=== PATIENT | female | born 1950 | race African-American/Black ===

== ENCOUNTER 2017-04-09 06:48 | Day surgery (SDC) | payer MEDICARE, MEDICAID ==
[~2017-04-09 06:48] MED LIST: KETOROLAC TROMETHAMINE 0.45% 4 DROP/0.4 ML DROPERETTE OD PRN
[2017-04-09] MEDS: CYCLOPENTOLATE 0.2%/PHENYLEPHRINE 1% OPH SOLN 2 ML OD PRN ×3 (07:05→07:39)
[2017-04-09] MEDS: TROPICAMIDE 1% OPH SOLN 3 ML OD PRN ×3 (07:05→07:39)
[2017-04-09] MEDS: BESIFLOXACIN HCL 0.6% OPH SUSP 5 ML BOTTLE OD PRN ×4 (07:06→08:28)
[2017-04-09] MEDS: LIDOCAINE 3.5% OPH GEL/PF 1 ML/TUBE OD PRN ×3 (07:07→07:57)
[2017-04-09] MEDS ORDERED: CHONDR SU A NA/HYALUR INTRAOC KIT (SURGICARE) ONE (07:08)
[2017-04-09] MEDS ORDERED: LIDOCAINE 1% INJ-PF (10 MG/ML) 30 ML SDV ONE (07:08)
[2017-04-09] MEDS ORDERED: EPINEPHRINE INJ/PF 1 MG/1 ML AMPULE ONE (07:08)
[2017-04-09] MEDS ORDERED: MIDAZOLAM 2 MG/2 ML INJ ONE (07:40)
[2017-04-09] MEDS: TOBRAMYCIN SULFATE/DEXAMETH OPH OINTMENT 3.5 GM ONE ×2 (08:28)
[2017-04-09] MEDS ORDERED: TRYPAN BLUE 0.06 % OPH SOLN 0.5 ML DISP.SYRIN ONE (08:28)
== END 2017-04-09 09:51 | disposition home or self-care (01) ==
LOC: SC 06:48
PROVIDERS: ATTEND Ophthalmology
PROC: 08RJ3JZ Replacement of Right Lens with Synthetic Substitute, Percutaneous Approach (ICD-10-PCS; principal; 2017-04-09 07:45)
DX: H25.11 Age-related nuclear cataract, right eye (principal); M19.90 Unspecified osteoarthritis, unspecified site; E11.9 Type 2 diabetes mellitus without complications; I10 Essential (primary) hypertension; J45.909 Unspecified asthma, uncomplicated; Z79.899 Other long term (current) drug therapy; Z79.84 Long term (current) use of oral hypoglycemic drugs
CPT/HCPCS: 66984; 82962; V2630; J2250; J3490 ×4; A9270 ×2; J0171; 142

== ENCOUNTER 2017-04-23 06:46 | Day surgery (SDC) | payer MEDICARE, MEDICAID ==
[~2017-04-23 06:46] MED LIST changes: -KETOROLAC TROMETHAMINE 0.45% 4 DROP/0.4 ML DROPERETTE OD PRN; +KETOROLAC TROMETHAMINE 0.45% 4 DROP/0.4 ML DROPERETTE OS PRN
[2017-04-23] MEDS: TROPICAMIDE 1% OPH SOLN 3 ML OS PRN ×3 (06:50→07:10)
[2017-04-23] MEDS: CYCLOPENTOLATE 0.2%/PHENYLEPHRINE 1% OPH SOLN 2 ML OS PRN ×3 (06:50→07:10)
[2017-04-23] MEDS: BESIFLOXACIN HCL 0.6% OPH SUSP 5 ML BOTTLE OS PRN ×4 (06:50→08:03)
[2017-04-23] MEDS: LIDOCAINE 3.5% OPH GEL/PF 1 ML/TUBE OS PRN ×3 (06:51→07:40)
[2017-04-23] MEDS ORDERED: MIDAZOLAM 2 MG/2 ML INJ ONE (06:56)
[2017-04-23] MEDS ORDERED: LIDOCAINE 1% INJ-PF (10 MG/ML) 30 ML SDV ONE (07:10)
[2017-04-23] MEDS ORDERED: EPINEPHRINE INJ/PF 1 MG/1 ML AMPULE ONE (07:10)
[2017-04-23] MEDS ORDERED: TRYPAN BLUE 0.06 % OPH SOLN 0.5 ML DISP.SYRIN ONE (07:43)
[2017-04-23] MEDS: CHONDR SU A NA/HYALUR INTRAOC KIT (SURGICARE) ONE ×2 (07:52→07:53)
[2017-04-23] MEDS: TOBRAMYCIN SULFATE/DEXAMETH OPH OINTMENT 3.5 GM ONE ×2 (08:03)
== END 2017-04-23 09:43 | disposition home or self-care (01) ==
LOC: SC 06:46
PROVIDERS: ATTEND Ophthalmology
PROC: 08RK3JZ Replacement of Left Lens with Synthetic Substitute, Percutaneous Approach (ICD-10-PCS; principal; 2017-04-23 07:30)
DX: H25.12 Age-related nuclear cataract, left eye (principal); Z96.1 Presence of intraocular lens; M19.90 Unspecified osteoarthritis, unspecified site; E11.9 Type 2 diabetes mellitus without complications; I10 Essential (primary) hypertension; J44.9 Chronic obstructive pulmonary disease, unspecified; E66.9 Obesity, unspecified; Z79.84 Long term (current) use of oral hypoglycemic drugs; Z79.899 Other long term (current) drug therapy; Z98.41 Cataract extraction status, right eye; Z79.51 Long term (current) use of inhaled steroids; Z68.41 Body mass index [BMI] 40.0-44.9, adult
CPT/HCPCS: 82962; 72100; 66984; V2630; J2250; J3490 ×4; A9270 ×2; J0171; 142

== ENCOUNTER → 2017-04-23 | Outpatient (CLI) | payer MEDICARE, MEDICAID ==
--- NOTE | 2017-04-23 13:40 | RADIOLOGY REPORT (SQ) ---
EXAM DESCRIPTION: LUMBAR SPINE 2 VIEWS COMPLETED DATE/TIME: 04/23/2017 10:52 am REASON FOR STUDY: LUMBAGO WITH SCIATICA, UNSPECIFIED SIDE M54.40 LUMBAGO WITH SCIATICA, UNSPECIFIED SIDE COMPARISON: None. NUMBER OF VIEWS: Two views. TECHNIQUE: AP and lateral radiographic images acquired of the lumbar spine. LIMITATIONS: None. FINDINGS: MINERALIZATION: Normal. SEGMENTATION: Normal. No transitional anatomy. ALIGNMENT: Normal. VERTEBRAE: Maintained height. No fracture or worrisome bone lesion. DISCS: Mild disc degeneration L5-S1. Scattered osteophytes. POSTERIOR ELEMENTS: Facet arthropathy L5-S1 on the right. HARDWARE: None in the spine. PARASPINAL SOFT TISSUES: Normal. PELVIS: Intact as visualized. No fractures or worrisome bone lesions. SI joints intact. OTHER: No other significant finding. IMPRESSION: Mild disc degeneration L5-S1. Scattered osteophytes. Facet arthropathy L5-S1 on the ri ght. TECHNICAL DOCUMENTATION: JOB ID: [id number] [employer]- All Rights Reserved
== END ==
LOC: OD 10:33
PROVIDERS: ATTEND Physician Assistant
DX: M54.40 Lumbago with sciatica, unspecified side (principal)
CPT/HCPCS: 72100

== ENCOUNTER 2017-11-19 01:04 | Emergency (ER) | payer MEDICARE, MEDICAID ==
[2017-11-19 02:31] LABS: ABSOLUTE BASOPHILS # (AUTO) 0.1 10^3/uL (0.0-0.2); ABSOLUTE EOSINOPHILS # (AUTO) 0.4 10^3/uL (0.0-0.6); ABSOLUTE LYMPHOCYTES (AUTO) 2.3 10^3/uL (0.5-4.7); ABSOLUTE MONOCYTES (AUTO) 0.7 10^3/uL (0.1-1.4); ABSOLUTE NEUT (AUTO) 2.9 10^3/uL (1.7-8.2); EOSINOPHILS % (AUTO) 6.8 % (0-6); HEMATOCRIT 30.3 % (36.0-47.0); HEMOGLOBIN 10.2 g/dL (12.0-15.5); MEAN CORPUSCULAR HEMOGLOBIN 26.9 pg (27.0-33.4); MEAN CORPUSCULAR HGB CONC 33.5 g/dL (32.0-36.0); MEAN CORPUSCULAR VOLUME 80 fl (80-97); MONOCYTES % (AUTO) 10.2 % (3-13); PLATELET COUNT 126 10^3/uL (150-450); RED BLOOD COUNT 3.78 10^6/uL (3.72-5.28); RED CELL DISTRIBUTION WIDTH 16.3 % (11.5-14.0); TOTAL CELLS COUNTED % (AUTO) 100 %; WHITE BLOOD COUNT 6.4 10^3/uL (4.0-10.5)
[2017-11-19 02:43] LABS: ALANINE AMINOTRANSFERASE 35 U/L (9-52); ALBUMIN 2.3 g/dL (3.5-5.0); ALKALINE PHOSPHATASE 135 U/L (38-126); ANION GAP 7 (5-19); ASPARTATE AMINO TRANSFERASE 84 U/L (14-36); BILIRUBIN,DIRECT 0.2 mg/dL (0.0-0.4); BILIRUBIN,TOTAL 0.2 mg/dL (0.2-1.3); BLOOD UREA NITROGEN 9 mg/dL (7-20); CALCIUM 9.6 mg/dL (8.4-10.2); CARBON DIOXIDE 23 mmol/L (22-30); CHLORIDE 112 mmol/L (98-107); CREATINE KINASE 640 U/L (30-135); GLUCOSE 142 mg/dL (75-110); SODIUM 142.3 mmol/L (137-145); TOTAL PROTEIN 5.8 g/dL (6.3-8.2)
[2017-11-19 02:55] LABS: CREATINE KINASE MB 1.79 ng/mL (<4.55); NT PRO BNP 173 pg/mL (5-900); TROPONIN I < 0.012 ng/mL
--- NOTE | 2017-11-19 02:56 | RADIOLOGY REPORT (SQ) ---
EXAM DESCRIPTION: CHEST SINGLE VIEW CLINICAL HISTORY: shortness of breath, cough COMPARISON: None. FINDINGS: Single frontal view of the chest. The cardiomediastinal silhouette has normal size and contour. No consolidation, pneumothorax, or pleural effusion. No displaced rib fractures identified. Leads overlie the chest. Upper abdominal soft tissues are unremarkable. IMPRESSION: 1. No acute pulmonary process identified.
--- NOTE | 2017-11-19 03:11 | ER Document Report ---
ED General - General Chief Complaint: Chest Pain Stated Complaint: COUGH Time Seen by Provider: 11/19/17 01:46 Notes: Patient is a 67-year-old female who presents with a chief complaint of nonproductive cough 1 week patient denies any fever or chills, nausea, vomiting. Patient reports that she also has generalized abdominal tenderness with swelling 1 week. Patient reports normal bowel movements last 2 days does report 2 episodes of diarrhea last week which has resolved. Patient does report chest pain but only with cough. Patient states lately she has had increasing dyspnea on exertion. Patient reports a history of asthma non-insulin -dependent diabetes and hypertension. TRAVEL OUTSIDE OF THE [place] IN LAST 30 DAYS: No - Related Data Allergies/Adverse Reactions: No Known Allergies Allergy (Verified 04/23/17 06:55) Past Medical History - General Information source: Patient - Social History Smoking Status: Never Smoker Cigarette use (# per day): No Chew tobacco use (# tins/day): Yes Frequency of alcohol use: None Drug Abuse: None Lives with: Family Family History: Reviewed & Not Pertinent Patient has suicidal ideation: No Patient has homicidal ideation: No - Past Medical History Cardiac Medical History: Reports: Hx Hypertension - MEDICATED Denies: Hx Heart Attack Pulmonary Medical History: Reports: Hx Asthma - medication/prn for shortness of breath-NONE IN APPROX A MONTH Neurological Medical History: Denies: Hx Cerebrovascular Accident, Hx Seizures Endocrine Medical History: Reports: Hx Diabetes Mellitus Type 2 Renal/ Medical History: Reports: None. Denies: Hx Peritoneal Dialysis Malignancy Medical History: Reports: None GI Medical History: Reports: None. Denies: Hx Hepatitis, Hx Hiatal Hernia, Hx Ulcer Skin Medical History: Reports None Infectious Medical History: Reports: None. Denies: Hx Hepatitis Past Surgical History: Reports: Hx Gynecologic Surgery - D&C, Hx Tonsillectomy. Denies: Hx Hysterectomy, Hx Mastectomy, Hx Open Heart Surgery, Hx Pacemaker - Immunizations Hx Diphtheria, Pertussis, Tetanus Vaccination: No Hx Pneumococcal Vaccination: 05/18/11 Review of Systems - Review of Systems -: No ROS unobtainable due to patient's medical condition Constitutional: No symptoms reported EENT: No symptoms reported Cardiovascular: See HPI, Edema - Bilateral lower extremity 3+ pitting edema Respiratory: See HPI, Cough - Non-productive cough x 1 week Gastrointestinal: See HPI, Abdomen distended Genitourinary: No symptoms reported Female Genitourinary: No symptoms reported Musculoskeletal: No symptoms reported Skin: See HPI Hematologic/Lymphatic: No symptoms reported Neurological/Psychological: No symptoms reported Physical Exam - Vital signs Vitals: Temp Pulse Resp BP Pulse Ox 98.2 F 82 18 149/65 H 97 11/19/17 01:24 11/19/17 01:24 11/19/17 01:24 11/19/17 01:24 11/19/17 01:24 Interpretation: Normal - General General appearance: Appears well, Alert - HEENT Head: Normocephalic, Atraumatic Eyes: Normal Pupils: PERRL - Respiratory Respiratory status: No respiratory distress Chest status: Pain with cough Breath sounds: Normal Chest palpation: Normal - Cardiovascular Rhythm: Regular Heart sounds: Normal auscultation Murmur: No Pulses: Bounding: Radial, Posterior tibial - Abdominal Inspection: Normal Distension: Distended Bowel sounds: Normal Tenderness: Nontender Organomegaly: No organomegaly - Back Back: Normal, Nontender - Extremities General upper extremity: Nontender, Normal color, Normal ROM, Normal temperature General lower extremity: Nontender, Edema, Normal color, Normal ROM, Normal temperature, Normal weight bearing. No: Stef's sign - Neurological Neuro grossly intact: Yes Cognition: Normal Orientation: AAOx4 Kindra Coma Scale Eye Opening: Spontaneous Kindra Coma Scale Verbal: Oriented [place] Coma Scale Motor: Obeys Commands Kindra Coma Scale Total: 15 Speech: Normal Motor strength normal: LUE, RUE, LLE, RLE Sensory: Normal - Psychological Associated symptoms: Normal affect, Normal mood - Skin Skin Temperature: Warm Skin Moisture: Dry Skin Color: Normal Course - Re-evaluation Re-evalutation: Chest xray unremarkable, labs unremarkable other than elevated CK of 640 and decreased albumin. EKG shows a sinus rhythm with no ST depressions or elevations. Discussed patient with Dr. Zaragoza. Recommendation made to performs bedside ultrasound to [facility] to evaluate for ascites. Ultrasound was negative. Upon reviewing patients previous labs, patient has had elevated CK in the past. Patient states that she feels well and that she thinks her cough may be related to her lisinopril. Patient ambulated around the department and maintained an O2 saturation of 100% with a heart rate of 98. Patient will be discharged with prescription for Lasix 20 mg daily and agrees to follow-up with her primary care physician within the next 3-5 days. Patient verbalizes understanding and agrees with plan of care. - Vital Signs Vital signs: Temp Pulse Resp BP Pulse Ox 98.4 F 87 17 148/84 H 97 11/19/17 04:31 11/19/17 04:31 11/19/17 04:31 11/19/17 04:31 11/19/17 04:31 - Laboratory Result Diagrams: 11/19/17 02:22 11/19/17 02:22 Laboratory results interpreted by me: 11/19/17 11/19/17 02:22 02:22 Hgb 10.2 L Hct 30.3 L MCH 26.9 L RDW 16.3 H Plt Count 126 L Eosinophils % 6.8 H Chloride 112 H Glucose 142 H AST 84 H Alkaline Phosphatase 135 H Creatine Kinase 640 H Total Protein 5.8 L Albumin 2.3 L Procedures - Ultrasound/Bedside Ultrasound/Bedside Ultrasound: Normal - Bedside ultrasound performed to RLQ to assess for ascites, ultrasound was negative. Discharge - Discharge Clinical Impression: Nonproductive cough, Lower extremity edema Dyspnea Qualifiers: Dyspnea type: dyspnea on exertion Qualified Code(s): R06.09 - Other forms of dyspnea Condition: Stable Disposition: HOME, SELF-CARE Additional Instructions: Your workup today was unremarkable other than an elevated CK (which you have had in the past) please have this rechecked at your next visit. The nonproductive cough you have been experiencing may be related to your blood pressure medication (lisinopril). You are being given a prescription for Lasix for swelling to lower extremities. We reccomend that you purchase some ION hose at your local pharmacy. Please follow-up with your primary care provider at [facility] in 3-5 days. Edema, Peripheral You have swelling in your legs. This is called peripheral edema. It can be caused by "leaky capillaries," inflammation, disease of the leg veins, or excess salt and water in your body. Edema may be a sign of heart, kidney, or liver disease. A medical evaluation can determine if there is a serious underlying cause for your edema. Avoid prolonged standing. If you must sit for a long time, occasionally get up and walk around or elevate your legs. Support stockings can be helpful in limiting swelling. Often diuretic or water pills are used to remove excess salt and water from your body. Call the doctor or return if you develop increased swelling, pain, or redness, shortness of breath, chest pain, or any other significant change. Diuretic We have prescribed a diuretic medication. Diuretics are often called "water pills." The medicine flushes excess salt and water from the body. Diuretics are used for fluid retention (such as heart failure, cirrhosis, or lung disease) and for blood pressure control. Often diuretics are combined with other medicines in the same pill. Most patients prefer to take the medicine in the morning. Diuretics make extra urine, which can be a problem if you take the pill at night. Diuretics make you lose potassium. Sometimes a good diet with plenty of fruit is enough to replace it. Sometimes a potassium supplement is necessary. Or, the diuretic may be combined with medicines that prevent potassium loss. We usually recommend a blood potassium test in a few weeks. Contact your doctor if you develop extreme fatigue, muscle weakness, lethargy, confusion, or palpitations. Prescriptions: Furosemide [Lasix 20 mg Tablet] 20 mg PO QAM #30 tablet Referrals: [facility] [Provider Group] - Follow up in 3-5 days
[2017-11-19 04:03] VITALS: BP 148/84
--- NOTE | 2017-11-19 09:35 | EKG REPORT ---
SEVERITY:- ABNORMAL ECG - SINUS RHYTHM LEFT VENTRICULAR HYPERTROPHY : Confirmed by: Yasmin Garcia 19-Nov-2017 09:34:42
== END 2017-11-19 04:31 | disposition home or self-care (01) ==
LOC: ER 01:04
DX: R05 Cough (principal); R60.9 Edema, unspecified; R06.09 Other forms of dyspnea; R07.9 Chest pain, unspecified; R11.2 Nausea with vomiting, unspecified; I10 Essential (primary) hypertension; E11.9 Type 2 diabetes mellitus without complications
CPT/HCPCS: 36415; 71045; 80053; 82550; 82553; 83880; 84484; 85025; 93005; 93010; 99285

== ENCOUNTER → 2018-02-27 | Outpatient (CLI) | payer MEDICAID | LOC: LAB 20:33 | PROVIDERS: ATTEND Nurse Practitioner Acute Care | DX: R31.9 Hematuria, unspecified (principal) | CPT/HCPCS: 87086; 87088; 87186 ==

== ENCOUNTER 2018-04-22 23:02 | Emergency (ER) | payer MEDICARE, MEDICAID ==
[2018-04-23] MEDS ORDERED: IPRATROPIUM/ALBUTEROL 0.5-2.5 MG/3 ML AMPUL NEB ONE (00:19)
--- NOTE | 2018-04-23 00:19 | ER Document Report ---
ED General - General Chief Complaint: Shortness Of Breath Stated Complaint: NOT FEELING WELL Time Seen by Provider: 04/23/18 00:18 Mode of Arrival: Ambulatory Information source: Patient Notes: This is a 67-year-old female with a history of hypertension and diabetes who presents to the emergency room with a cough productive of a clear sputum, subjective fevers the past week. Patient denies any abdominal pain, chest pain. She denies any diarrhea. She states she is eating and drinking fine. He denies any leg swelling. TRAVEL OUTSIDE OF THE [place] IN LAST 30 DAYS: No - HPI Onset: Last week Quality of pain: No pain Severity: None Associated symptoms: Chills, Productive cough - Minimally productive cough, Fever. denies: Chest pain, Shortness of breath Exacerbated by: Denies Relieved by: Denies Similar symptoms previously: No Recently seen / treated by doctor: No - Related Data Allergies/Adverse Reactions: No Known Allergies Allergy (Verified 04/22/18 23:03) Past Medical History - General Information source: Patient - Social History Smoking Status: Never Smoker Cigarette use (# per day): No Chew tobacco use (# tins/day): No Frequency of alcohol use: None Drug Abuse: None Lives with: Family Family History: Reviewed & Not Pertinent Patient has suicidal ideation: No Patient has homicidal ideation: No - Past Medical History Cardiac Medical History: Reports: Hx Hypertension - MEDICATED Denies: Hx Heart Attack Pulmonary Medical History: Reports: Hx Asthma - medication/prn for shortness of breath-NONE IN APPROX A MONTH Neurological Medical History: Denies: Hx Cerebrovascular Accident, Hx Seizures Endocrine Medical History: Reports: Hx Diabetes Mellitus Type 1, Hx Diabetes Mellitus Type 2 Renal/ Medical History: Denies: Hx Peritoneal Dialysis GI Medical History: Denies: Hx Hepatitis, Hx Hiatal Hernia, Hx Ulcer Infectious Medical History: Denies: Hx Hepatitis Past Surgical History: Reports: Hx Gynecologic Surgery - D&C, Hx Tonsillectomy. Denies: Hx Hysterectomy, Hx Mastectomy, Hx Open Heart Surgery, Hx Pacemaker - Immunizations Hx Diphtheria, Pertussis, Tetanus Vaccination: No Hx Pneumococcal Vaccination: 05/18/11 Review of Systems - Review of Systems Constitutional: denies: Chills, Fever EENT: No symptoms reported Cardiovascular: No symptoms reported Respiratory: See HPI Gastrointestinal: No symptoms reported. denies: Abdominal pain Genitourinary: No symptoms reported Female Genitourinary: No symptoms reported Musculoskeletal: See HPI Skin: No symptoms reported Hematologic/Lymphatic: No symptoms reported Neurological/Psychological: No symptoms reported Physical Exam - Vital signs Vitals: Temp Pulse Resp BP Pulse Ox 97.6 F 115 H 20 141/65 H 100 04/22/18 23:06 04/22/18 23:06 04/22/18 23:06 04/22/18 23:06 04/22/18 23:06 Notes: Physical exam: GENERAL: 67-year-old female, alert and oriented 3, no acute distress HEAD: Atraumatic, normocephalic. EYES: Pupils equal round and reactive to light, extraocular movements intact, sclera anicteric, conjunctiva are normal. ENT: TMs normal, nares patent, oropharynx clear without exudates. Moist mucous membranes. NECK: Normal range of motion, supple without obvious mass or JVD. LUNGS: Breath sounds clear to auscultation bilaterally and equal. No wheezes rales or rhonchi. HEART: Regular rate and rhythm without murmurs, rubs or gallops. ABDOMEN: Soft, normoactive bowel sounds. No tenderness to palpation. No guarding, no rebound. No masses appreciated. EXTREMITIES: Normal range of motion, no pitting or edema. No clubbing or cyanosis. NEUROLOGICAL: Cranial nerves II through XII grossly intact. Normal speech, moving all extremities. PSYCH: Normal mood, normal affect. SKIN: Warm, Dry, normal turgor, no rashes or lesions noted. Course - Vital Signs Vital signs: Temp Pulse Resp BP Pulse Ox 97.6 F 115 H 32 H 137/79 H 100 04/22/18 23:06 04/22/18 23:06 04/23/18 03:00 04/23/18 03:01 04/23/18 03:00 - Laboratory Result Diagrams: 04/23/18 02:45 04/23/18 01:37 Laboratory results interpreted by me: 04/23/18 04/23/18 01:37 02:45 RBC 3.64 L Hgb 9.2 L Hct 28.1 L MCV 77 L MCH 25.4 L RDW 19.9 H Seg Neuts % (Manual) 82 H Lymphocytes % (Manual) 12 L Chloride 108 H Carbon Dioxide 19 L Creatinine 1.49 H Est GFR ( Amer) 42 L Est GFR (Non-Af Amer) 35 L Total Bilirubin 2.6 H Direct Bilirubin 1.9 H AST 1025 H Alkaline Phosphatase 160 H Total Protein 8.8 H Albumin 3.1 L - Diagnostic Test Radiology reviewed: Image reviewed, Reports reviewed Discharge - Discharge Clinical Impression: Atypical pneumonia Condition: Stable Disposition: HOME, SELF-CARE Additional Instructions: As we discussed, you do have elevated liver enzymes and these are most likely from your diabetes medicine. I would like you to bring a copy of these labs with you when you go to your primary care doctor (had like you to contact them tomorrow) about coming off that medicine. As far as your cough, chills and fever: Clinically, you have an atypical pneumonia. You have been started on antibiotics. And I want you to follow-up with your doctor to make sure you are recovering. You can return to the emergency room if you have worsening cough or shortness of breath. You can try the inhaler as this may provide some relief. Prescriptions: Benzonatate [Tessalon Perles 100 mg Capsule] 100 mg PO Q8HP PRN #40 capsule PRN Reason: Doxycycline Hyclate 100 mg PO BID #20 capsule Referrals: ANTONY PROCTOR, DEBBIE [Primary Care Provider] - Follow up as needed
--- NOTE | 2018-04-23 00:50 | RADIOLOGY REPORT (SQ) ---
EXAM DESCRIPTION: XR CHEST 2 VIEWS COMPLETED DATE/TME: 04/23/2018 00:19 CLINICAL HISTORY: 67 years Female, cough, fever COMPARISON: None. FINDINGS: Adequate lung volume, pulmonary vascular congestion, normal cardiac silhouette, and intact bony thorax. IMPRESSION: Pulmonary vascular congestion.
[2018-04-23 02:02] LABS: ALANINE AMINOTRANSFERASE 48 U/L (9-52); ALBUMIN 3.1 g/dL (3.5-5.0); ALKALINE PHOSPHATASE 160 U/L (38-126); ANION GAP 13 (5-19); BILIRUBIN,DIRECT 1.9 mg/dL (0.0-0.4); BILIRUBIN,TOTAL 2.6 mg/dL (0.2-1.3); BLOOD UREA NITROGEN 12 mg/dL (7-20); CALCIUM 9.6 mg/dL (8.4-10.2); CARBON DIOXIDE 19 mmol/L (22-30); CHLORIDE 108 mmol/L (98-107); GLUCOSE 109 mg/dL (75-110); POTASSIUM 4.4 mmol/L (3.6-5.0); SODIUM 139.7 mmol/L (137-145); TOTAL PROTEIN 8.8 g/dL (6.3-8.2)
[2018-04-23 02:13] LABS: ASPARTATE AMINO TRANSFERASE 1025 U/L (14-36)
[2018-04-23 02:14] LABS: NT PRO BNP 164 pg/mL (5-900)
[2018-04-23 02:16] LABS: TROPONIN I < 0.012 ng/mL
[2018-04-23] MEDS ORDERED: DOXYCYCLINE HYCLATE 100 MG TABLET PO ONE (02:46)
[2018-04-23 03:04] LABS: HEMATOCRIT 28.1 % (36.0-47.0); HEMOGLOBIN 9.2 g/dL (12.0-15.5); MEAN CORPUSCULAR HEMOGLOBIN 25.4 pg (27.0-33.4); MEAN CORPUSCULAR HGB CONC 32.9 g/dL (32.0-36.0); MEAN CORPUSCULAR VOLUME 77 fl (80-97); PLATELET COUNT 150 10^3/uL (150-450); RED BLOOD COUNT 3.64 10^6/uL (3.72-5.28); RED CELL DISTRIBUTION WIDTH 19.9 % (11.5-14.0); WHITE BLOOD COUNT 8.6 10^3/uL (4.0-10.5)
[2018-04-23 03:21] VITALS: BP 137/79
[2018-04-23 03:27] LABS: ABSOLUTE MONOCYTES # (MANUAL) 0.3 10^3/uL (0.1-1.4); ABSOLUTE NEUTROPHILS# (MANUAL) 7.1 10^3/uL (1.7-8.2); BASOPHILS % (MANUAL) 1 % (0-2); EOSINOPHILS % (MANUAL) 1 % (0-6); LYMPHOCYTES % (MANUAL) 12 % (13-45); MONOCYTES % (MANUAL) 4 % (3-13); SEGMENTED NEUTROPHILS % (MAN) 82 % (42-78); TOTAL CELLS COUNTED 100
[2018-04-23] MEDS ORDERED: ALBUTEROL SULFATE HFA (90 MCG/PUFF) 8 GM MDI (1 MDI/ER DISP) IH ONE (03:28)
[2018-04-23 03:38] LABS: POLYCHROMASIA 1+; TOXIC GRANULATION 1+; TOXIC VACUOLATION PRESENT
[2018-04-23 03:39] LABS: ANISOCYTOSIS 2+; HOWELL-JOLLY BODIES PRESENT; PAPPENHEIMER BODIES PRESENT; PLATELET CLUMPS PRESENT; PLATELET COMMENT ADEQUATE; PLATELET GIANT PRESENT; PLATELET LARGE PRESENT; POIKILOCYTOSIS 2+; SCHISTOCYTES 1+; TARGET CELLS 1+; TEAR DROP CELLS SLIGHT
[2018-04-23] MEDS ORDERED: BENZONATATE 100 MG CAPSULE PO ONE (03:52)
== END 2018-04-23 04:05 | disposition home or self-care (01) ==
LOC: ER 23:02
DX: J18.9 Pneumonia, unspecified organism (principal); I10 Essential (primary) hypertension; E11.9 Type 2 diabetes mellitus without complications
CPT/HCPCS: 94640; 99285; 36415; 85025; 80053; 84484; 83880; 71046; A9270 ×3; J3490; J7620

== ENCOUNTER 2018-04-28 16:15 | Emergency (ER) | payer MEDICARE, MEDICAID ==
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
--- NOTE | 2018-04-28 17:24 | RADIOLOGY REPORT (SQ) ---
EXAM DESCRIPTION: CHEST 2 VIEWS COMPLETED DATE/TIME: 04/28/2018 5:14 pm REASON FOR STUDY: cough congestion COMPARISON: 968 B EXAM PARAMETERS: NUMBER OF VIEWS: two views TECHNIQUE: Digital Frontal and Lateral radiographic views of the chest acquired. RADIATION DOSE: NA LIMITATIONS: none FINDINGS: LUNGS AND PLEURA: Mild pulmonary vascular prominence. No pulmonary edema. Cannot exclude a 13 mm left pulmonary nodule. MEDIASTINUM AND HILAR STRUCTURES: No masses or contour abnormalities. HEART AND VASCULAR STRUCTURES: Heart normal size. No evidence for failure. BONES: No acute findings. HARDWARE: None in the chest. OTHER: No other significant finding. IMPRESSION: Possible left pulmonary nodule. TECHNICAL DOCUMENTATION: JOB ID: [id number] [employer]- All Rights Reserved Reading location - IP/workstation name: [email or web address]
[2018-04-28 19:51] LABS: HEMATOCRIT 29.1 % (36.0-47.0); HEMOGLOBIN 9.7 g/dL (12.0-15.5); MEAN CORPUSCULAR HEMOGLOBIN 25.9 pg (27.0-33.4); MEAN CORPUSCULAR HGB CONC 33.2 g/dL (32.0-36.0); MEAN CORPUSCULAR VOLUME 78 fl (80-97); PLATELET COUNT 216 10^3/uL (150-450); RED BLOOD COUNT 3.74 10^6/uL (3.72-5.28); RED CELL DISTRIBUTION WIDTH 20.3 % (11.5-14.0); WHITE BLOOD COUNT 8.1 10^3/uL (4.0-10.5)
[2018-04-28 20:10] LABS: ABSOLUTE MONOCYTES # (MANUAL) 0.5 10^3/uL (0.1-1.4); ABSOLUTE NEUTROPHILS# (MANUAL) 6.5 10^3/uL (1.7-8.2); BASOPHILS % (MANUAL) 0 % (0-2); EOSINOPHILS % (MANUAL) 2 % (0-6); LYMPHOCYTES % (MANUAL) 12 % (13-45); MONOCYTES % (MANUAL) 6 % (3-13); SEGMENTED NEUTROPHILS % (MAN) 80 % (42-78); TOTAL CELLS COUNTED 100
[2018-04-28 20:11] LABS: ANISOCYTOSIS 2+; PLATELET COMMENT ADEQUATE; PLATELET LARGE PRESENT
[2018-04-28 20:12] LABS: POIKILOCYTOSIS 1+; TARGET CELLS 1+
[2018-04-28 20:22] LABS: ALANINE AMINOTRANSFERASE 59 U/L (9-52); ALBUMIN 2.8 g/dL (3.5-5.0); ALKALINE PHOSPHATASE 135 U/L (38-126); ANION GAP 11 (5-19); BILIRUBIN,DIRECT 2.5 mg/dL (0.0-0.4); BILIRUBIN,TOTAL 3.3 mg/dL (0.2-1.3); BLOOD UREA NITROGEN 14 mg/dL (7-20); CALCIUM 10.1 mg/dL (8.4-10.2); CARBON DIOXIDE 20 mmol/L (22-30); CHLORIDE 108 mmol/L (98-107); GLUCOSE 73 mg/dL (75-110); POTASSIUM 3.9 mmol/L (3.6-5.0); SODIUM 139.1 mmol/L (137-145); TOTAL PROTEIN 8.2 g/dL (6.3-8.2)
[2018-04-28 20:39] LABS: ASPARTATE AMINO TRANSFERASE 1122 U/L (14-36)
--- NOTE | 2018-04-28 21:11 | RADIOLOGY REPORT (SQ) ---
CT CHEST ANGIOGRAPHY WITHOUT THEN WITH IV CONTRAST HISTORY: Cough. Shortness of breath. Possible pulmonary nodules. COMPARISON: Radiographs from earlier the same day. TECHNIQUE: CT scan of the chest. This exam was performed according to our departmental dose-optimization program, which includes automated exposure control, adjustment of the mA and/or kV according to patient size and/or use of iterative reconstruction technique. 3-D MIP images were obtained in coronal and sagittal reconstructions. FINDINGS: No acute pulmonary embolism is seen. Subsegmental branches are degraded by motion artifact. No evidence of right heart strain. The thyroid gland is unremarkable. No mediastinal, hilar, or axillary adenopathy is seen. There is no thoracic aortic dissection or aneurysm. No pericardial effusion. Innumerable pulmonary nodules scattered throughout both lung davis measuring up to 1.7 cm in the left lower lobe. No pleural effusion or pneumothorax. No suspicious lytic or blastic lesions are seen. Enlarged cirrhotic liver with perihepatic and perisplenic ascites. IMPRESSION: 1. No acute pulmonary embolism. Subsegmental branches are degraded by motion artifact. 2. Innumerable pulmonary nodules scattered throughout both lung davis. 3. Cirrhotic liver with sequela of portal hypertension. Consider dedicated abdomen CT scan if clinically indicated.
[2018-04-28 21:44] LABS: INTERNATIONAL RATION (INR) 1.69; PROTHROMBIN TIME 20.7 SEC (11.4-15.4)
[2018-04-28 21:45] LABS: PARTIAL THROMBOPLASTIN TIME 32.9 SEC (23.5-35.8)
[2018-04-28 22:45] VITALS: BP 135/66
== END 2018-04-28 22:46 | disposition home or self-care (01) ==
LOC: ER 16:15
DX: R91.8 Other nonspecific abnormal finding of lung field (principal); K74.60 Unspecified cirrhosis of liver; R05 Cough; R06.02 Shortness of breath; R07.9 Chest pain, unspecified; R09.82 Postnasal drip; R09.89 Other specified symptoms and signs involving the circulatory and respiratory systems; J34.89 Other specified disorders of nose and nasal sinuses; I10 Essential (primary) hypertension; J45.909 Unspecified asthma, uncomplicated; E11.9 Type 2 diabetes mellitus without complications
CPT/HCPCS: 36415; 71046; 71275; 80053; 85025; 85610; 85730; 99284

== ENCOUNTER 2018-05-03 20:51 | Emergency (ER) | payer MEDICARE, MEDICAID ==
--- NOTE | 2018-05-03 21:48 | ER Document Report ---
ED Medical Screen (RME) - General Chief Complaint: Cold Symptoms Stated Complaint: COUGHING,VOMITING Time Seen by Provider: 05/03/18 21:44 Mode of Arrival: Ambulatory Information source: Patient Notes: 67-year-old female presents to ED for continued cough. She was seen 4 days ago and had a chest x-ray which showed some pulmonary nodules. She had a CAT scan done at that time which showed multiple nodules and she was instructed to follow -up with her primary doctor. She states she is called but has not seen her primary doctor yet. Patient states she is continued to cough and is not been able to stop coughing. Patient is alert and oriented, lungs sound clear at this time. I have greeted and performed a rapid initial assessment of this patient. A comprehensive ED assessment and evaluation of the patient, analysis of test results and completion of medical decision making process will be conducted by an additional ED providers. TRAVEL OUTSIDE OF THE [place] IN LAST 30 DAYS: No - Related Data Allergies/Adverse Reactions: No Known Allergies Allergy (Verified 05/03/18 20:56) Past Medical History - Social History Chew tobacco use (# tins/day): No Frequency of alcohol use: None Drug Abuse: None - Past Medical History Cardiac Medical History: Reports: Hx Hypertension - MEDICATED Denies: Hx Heart Attack Pulmonary Medical History: Reports: Hx Asthma - medication/prn for shortness of breath-NONE IN APPROX A MONTH Neurological Medical History: Denies: Hx Cerebrovascular Accident, Hx Seizures Endocrine Medical History: Reports: Hx Diabetes Mellitus Type 1, Hx Diabetes Mellitus Type 2 Renal/ Medical History: Denies: Hx Peritoneal Dialysis GI Medical History: Denies: Hx Hepatitis, Hx Hiatal Hernia, Hx Ulcer Infectious Medical History: Denies: Hx Hepatitis Past Surgical History: Reports: Hx Gynecologic Surgery - D&C, Hx Tonsillectomy. Denies: Hx Hysterectomy, Hx Mastectomy, Hx Open Heart Surgery, Hx Pacemaker - Immunizations Hx Diphtheria, Pertussis, Tetanus Vaccination: No Physical Exam - Vital signs Vitals: Temp Pulse Resp BP Pulse Ox 98.7 F 112 H 22 H 114/80 99 05/03/18 21:30 05/03/18 21:30 05/03/18 21:30 05/03/18 21:30 05/03/18 21:30 Course - Vital Signs Vital signs: Temp Pulse Resp BP Pulse Ox 98.7 F 112 H 22 H 114/80 99 05/03/18 21:30 05/03/18 21:30 05/03/18 21:30 05/03/18 21:30 05/03/18 21:30
[2018-05-04] MEDS ORDERED: IPRATROPIUM/ALBUTEROL 0.5-2.5 MG/3 ML AMPUL NEB ONE (01:51)
[2018-05-04] MEDS ORDERED: LIDOCAINE 2% INJ-PF (20 MG/ML) 10 ML AMPUL NEB ONE (01:51)
[2018-05-04] MEDS ORDERED: DEXAMETHASONE 4 MG TABLET PO ONE (01:52)
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
[2018-05-04 03:11] VITALS: BP 120/69
--- NOTE | 2018-05-04 08:39 | RADIOLOGY REPORT (SQ) ---
EXAM DESCRIPTION: CHEST 2 VIEWS COMPLETED DATE/TIME: 05/03/2018 11:08 pm REASON FOR STUDY: cough congestion COMPARISON: 04/28/2018 EXAM PARAMETERS: NUMBER OF VIEWS: two views TECHNIQUE: Digital Frontal and Lateral radiographic views of the chest acquired. RADIATION DOSE: NA LIMITATIONS: none FINDINGS: LUNGS AND PLEURA: Multiple pulmonary nodules are present. No effusions. No opacities. MEDIASTINUM AND HILAR STRUCTURES: No masses or contour abnormalities. HEART AND VASCULAR STRUCTURES: Heart normal size. No evidence for failure. BONES: No acute findings. HARDWARE: None in the chest. OTHER: No other significant finding. IMPRESSION: Multiple pulmonary nodules, presumed metastatic disease. No acute opacities. TECHNICAL DOCUMENTATION: JOB ID: [id number] [employer]- All Rights Reserved Reading location - IP/workstation name: [email or web address]
== END 2018-05-04 03:20 | disposition home or self-care (01) ==
LOC: ER 20:51
DX: K74.60 Unspecified cirrhosis of liver (principal); R91.8 Other nonspecific abnormal finding of lung field; R11.10 Vomiting, unspecified; R05 Cough; I10 Essential (primary) hypertension; E11.9 Type 2 diabetes mellitus without complications
CPT/HCPCS: 94640 ×2; 99283; 71046; A9270 ×2; J7620

== ENCOUNTER 2018-05-11 08:06 | Day surgery (SDC) | payer MEDICARE, MEDICAID ==
[~2018-05-11 08:06] MED LIST changes: -KETOROLAC TROMETHAMINE 0.45% 4 DROP/0.4 ML DROPERETTE OS PRN; +PROPOFOL INJ 200 MG/20 ML VIAL IV ONE
[2018-05-11] MEDS ORDERED: PROPOFOL INJ 200 MG/20 ML VIAL IV ONE (10:02)
--- NOTE | 2018-05-11 12:47 | Operative Report ---
Operative Report DATE OF SURGERY: 05/11/18 Operative Report: The risks, benefits and alternatives of the procedure including the risks of bleeding, perforation requiring surgery are explained to the patient in detail and informed consent is obtained. The patient has brought back to the endoscopy suite and placed in the left, lateral decubital position. Timeout was called. Propofol medication is administered. A rectal examination is done which did not reveal any masses, tears or fissures. An Olympus videoscope was inserted into the patient's rectum. The scope was then carefully advanced all the way to the cecum. The cecum was identified by the usual anatomical landmarks including the ileocecal valve as well as the appendiceal office. Photodocumentation is obtained. The scope was then sequentially pulled back via the various segments of the colon including the ascending colon, hepatic flexure, transverse colon, splenic flexure, descending colon and finally in to the rectosigmoid portions of the colon. Retroflexion maneuvers performed. PREOPERATIVE DIAGNOSIS: Abdominal pain, blood in stools POSTOPERATIVE DIAGNOSIS: Internal hemorrhoids. Fissures noted. Diffuse: Inflammation status post biopsy; friable mucosa. Polyp in the hepatic flexure that was removed via snare polypectomy. 2 polyps noted in the splenic flexure removed via snare polypectomy all of which are retrieved OPERATION: Colonoscopy with snare polypectomy. Colonoscopy with biopsy SURGEON: TYLER PERRIN ANESTHESIA: LMAC TISSUE REMOVED OR ALTERED: As noted above. COMPLICATIONS: None. ESTIMATED BLOOD LOSS: None. INTRAOPERATIVE FINDINGS: As noted above. PROCEDURE: Patient tolerated the procedure well. No immediate postprocedure complications are noted. Patient discharged in good condition. Discharge date 05/11/2018. Discharge diet: Regular. Discharge activity: Regular. 2-3 week follow-up to discuss findings. Patient is instructed call the office or proceed to the emergency room should there be any further problems or questions. Wait on the pathology. Six-month follow-up colonoscopy.
[2018-05-11 12:54] VITALS: BP 132/63
== END 2018-05-11 11:05 | disposition home or self-care (01) ==
LOC: END 08:06
PROVIDERS: ATTEND Internal Medicine Gastroenterology
DX: D12.6 Benign neoplasm of colon, unspecified (principal); K52.9 Noninfective gastroenteritis and colitis, unspecified; K64.8 Other hemorrhoids; K60.2 Anal fissure, unspecified; K92.1 Melena; E11.9 Type 2 diabetes mellitus without complications; E55.9 Vitamin D deficiency, unspecified; R74.8 Abnormal levels of other serum enzymes; I10 Essential (primary) hypertension; Z79.84 Long term (current) use of oral hypoglycemic drugs; Z79.51 Long term (current) use of inhaled steroids; Z13.89 Encounter for screening for other disorder
CPT/HCPCS: 45380; 45385; 82962; 88305 ×2; J2704; 811

== ENCOUNTER 2018-05-13 15:17 | Emergency (ER) | payer MEDICARE, MEDICAID ==
[2018-05-13] MEDS ORDERED: ALBUTEROL SULFATE 0.083% NEB 2.5 MG/3 ML AMPUL NEB ONE (16:19)
--- NOTE | 2018-05-13 16:19 | ER Document Report ---
ED Medical Screen (RME) - General Chief Complaint: Abdominal Pain Stated Complaint: STOMACH PAIN Time Seen by Provider: 05/13/18 16:13 Mode of Arrival: Ambulatory Information source: Patient, Relative, [facility] Records Notes: 68-year-old female with hypertension, diabetes presents with complaint of generalized abdominal pain that started 3 days prior to arrival. Patient also has had a persistent cough for 3 weeks. She reports associated nausea, vomiting , diarrhea, blood in her stool. I have greeted and performed a rapid initial assessment of this patient. A comprehensive ED assessment and evaluation of the patient, analysis of test results and completion of medical decision making process we will be contacted by additional ED providers. General; no acute distress Respiratory; persistent harsh cough Abdomen; periumbilical tenderness. TRAVEL OUTSIDE OF THE [place] IN LAST 30 DAYS: No - HPI Onset: Last week Onset/Duration: Gradual, Persistent Quality of pain: Achy Severity: Mild Associated Symptoms: Cough (nonproductive), Diarrhea, Nausea, Vomiting Exacerbated by: Coughing Relieved by: Denies Similar symptoms previously: No Recently seen / treated by doctor: Yes - Related Data Smoking: Non-smoker Frequency of alcohol use: None Drug Abuse: None Allergies/Adverse Reactions: No Known Allergies Allergy (Verified 05/13/18 15:18) Past Medical History - Past Medical History Cardiac Medical History: Reports: Hx Hypertension - MEDICATED Denies: Hx Heart Attack Pulmonary Medical History: Reports: Hx Asthma - medication/prn for shortness of breath-NONE IN APPROX A MONTH Neurological Medical History: Denies: Hx Cerebrovascular Accident, Hx Seizures Endocrine Medical History: Reports: Hx Diabetes Mellitus Type 1, Hx Diabetes Mellitus Type 2 Renal/ Medical History: Denies: Hx Peritoneal Dialysis GI Medical History: Denies: Hx Hepatitis, Hx Hiatal Hernia, Hx Ulcer Infectious Medical History: Denies: Hx Hepatitis Past Surgical History: Reports: Hx Gynecologic Surgery - D&C, Hx Tonsillectomy. Denies: Hx Hysterectomy, Hx Mastectomy, Hx Open Heart Surgery, Hx Pacemaker - Immunizations Hx Diphtheria, Pertussis, Tetanus Vaccination: No Physical Exam - Vital signs Vitals: Temp Pulse Resp BP Pulse Ox 97.9 F 100 24 H 129/76 H 99 05/13/18 15:25 05/13/18 15:25 05/13/18 15:25 05/13/18 15:25 05/13/18 15:25 Course - Vital Signs Vital signs: Temp Pulse Resp BP Pulse Ox 97.9 F 100 24 H 129/76 H 99 05/13/18 15:25 05/13/18 15:25 05/13/18 15:25 05/13/18 15:25 05/13/18 15:25
[2018-05-13] MEDS ORDERED: ONDANSETRON HCL INJ/PF 4 MG/2 ML SDV IV ONE (16:20)
[2018-05-13] MEDS ORDERED: MORPHINE SULFATE 10 MG/ML INJ IV ONE ×2 (16:20→23:12)
[2018-05-13 17:27] LABS: HEMATOCRIT 29.3 % (36.0-47.0); HEMOGLOBIN 9.8 g/dL (12.0-15.5); MEAN CORPUSCULAR HEMOGLOBIN 26.9 pg (27.0-33.4); MEAN CORPUSCULAR HGB CONC 33.3 g/dL (32.0-36.0); MEAN CORPUSCULAR VOLUME 81 fl (80-97); PLATELET COUNT 227 10^3/uL (150-450); RED BLOOD COUNT 3.63 10^6/uL (3.72-5.28); RED CELL DISTRIBUTION WIDTH 24.1 % (11.5-14.0); WHITE BLOOD COUNT 12.3 10^3/uL (4.0-10.5)
[2018-05-13 18:00] LABS: ABSOLUTE LYMPHOCYTES# (MANUAL) 1.6 10^3/uL (0.5-4.7); ABSOLUTE MONOCYTES # (MANUAL) 0.6 10^3/uL (0.1-1.4); ABSOLUTE NEUTROPHILS# (MANUAL) 9.6 10^3/uL (1.7-8.2); BAND NEUTROPHILS % (MANUAL) 2 % (3-5); BASOPHILS % (MANUAL) 0 % (0-2); EOSINOPHILS % (MANUAL) 4 % (0-6); LYMPHOCYTES % (MANUAL) 13 % (13-45); MONOCYTES % (MANUAL) 5 % (3-13); NUCLEATED RED BLOOD CELLS 3 /100 WBC (0); SEGMENTED NEUTROPHILS % (MAN) 76 % (42-78); TOTAL CELLS COUNTED 100
[2018-05-13 18:04] LABS: ANISOCYTOSIS 3+; PLATELET COMMENT ADEQUATE; POIKILOCYTOSIS 1+; POLYCHROMASIA SLIGHT; TARGET CELLS 1+
[2018-05-13 18:05] LABS: PLATELET LARGE PRESENT
--- NOTE | 2018-05-13 19:28 | ER Document Report ---
ED General - General Chief Complaint: Abdominal Pain Stated Complaint: STOMACH PAIN Time Seen by Provider: 05/13/18 16:13 Mode of Arrival: Ambulatory TRAVEL OUTSIDE OF THE [place] IN LAST 30 DAYS: No - HPI Notes: Patient is a 68-year-old female who presents to the ED complaining of a constant dry nonproductive cough over the last several weeks, but she has had in previous months as well. Patient states that she has also had generalized abdominal pain with nausea, occasional posttussive emesis, and diarrhea. Patient states that she noticed a blood tinge in her stool as well. Patient states that she did have a colonoscopy performed on Friday. Patient states that her pain started around that time as well. Patient is still able to eat and drink, but does have a decreased p.o. intake. Patient was noted to have innumerable pulmonary nodules at a visit about 2 weeks ago. She was also evaluated about 10 days ago as well for the cough. Denies any drug allergies. Denies any headache, fever, neck pain, URI, sore throat, chest pain, palpitations, syncope, shortness of breath, wheeze, dyspnea, urinary retention, dysuria, hematuria, back pain, loss of control of bowel or bladder, numbness/ tingling, saddle anesthesia, muscle paralysis/weakness, or rash. PMH: DM, HTN, cirrhosis - Related Data Allergies/Adverse Reactions: No Known Allergies Allergy (Verified 05/13/18 15:18) Past Medical History - General Information source: Patient, Relative, [facility] Records - Social History Smoking Status: Unknown if Ever Smoked Chew tobacco use (# tins/day): Yes Frequency of alcohol use: None Drug Abuse: None Family History: Reviewed & Not Pertinent Patient has suicidal ideation: No Patient has homicidal ideation: No - Past Medical History Cardiac Medical History: Reports: Hx Hypertension - MEDICATED Denies: Hx Heart Attack Pulmonary Medical History: Reports: Hx Asthma - medication/prn for shortness of breath-NONE IN APPROX A MONTH Neurological Medical History: Denies: Hx Cerebrovascular Accident, Hx Seizures Endocrine Medical History: Reports: Hx Diabetes Mellitus Type 1, Hx Diabetes Mellitus Type 2 Renal/ Medical History: Denies: Hx Peritoneal Dialysis GI Medical History: Denies: Hx Hepatitis, Hx Hiatal Hernia, Hx Ulcer Infectious Medical History: Denies: Hx Hepatitis Past Surgical History: Reports: Hx Gynecologic Surgery - D&C, Hx Tonsillectomy. Denies: Hx Hysterectomy, Hx Mastectomy, Hx Open Heart Surgery, Hx Pacemaker - Immunizations Hx Diphtheria, Pertussis, Tetanus Vaccination: No Hx Pneumococcal Vaccination: 05/18/11 Review of Systems - Review of Systems -: Yes All other systems reviewed and negative Physical Exam - Vital signs Vitals: Temp Pulse Resp BP Pulse Ox 97.9 F 100 24 H 129/76 H 99 05/13/18 15:25 05/13/18 15:25 05/13/18 15:25 05/13/18 15:25 05/13/18 15:25 - Notes Notes: PHYSICAL EXAMINATION: GENERAL: Well-appearing, well-nourished and in no acute distress. HEAD: Atraumatic, normocephalic. EYES: Pupils equal round and reactive to light, extraocular movements intact, sclera mild icteric, conjunctiva are normal. ENT: Nares patent and without discharge. oropharynx clear without exudates. No tonsilar hypertrophy or erythema. Moist mucous membranes. NECK: Normal range of motion, supple without lymphadenopathy LUNGS: Breath sounds clear to auscultation bilaterally and equal. No wheezes rales or rhonchi. HEART: Regular rate and rhythm without murmurs, rubs, gallops. ABDOMEN: Soft, nondistended abdomen. No guarding, no rebound. No masses appreciated. Normal bowel sounds present. No CVA tenderness bilaterally. + general mild tenderness. Musculoskeletal: FROM to passive/active. Strength 5+/5. Extremities: No cyanosis, clubbing, or edema b/l. Peripheral pulses 2+. Capillary refill less than 3 seconds. NEUROLOGICAL: Cranial nerves grossly intact. Normal speech, normal gait. PSYCH: Normal mood, normal affect. SKIN: mild jaundice Course - Re-evaluation Re-evalutation: 05/13/18 22:[address] Francisco. We will wait for the RUQ US and give her D5LR fluids as well. 05/13/18 23:40 Patient's labs are suggestive of a choledocholithiasis with the elevated LFTs, bilirubin, and lipase. Patient has corresponding abdominal discomfort and cholelithiasis on ultrasound. Patient's pain is currently being well controlled at this time. Patient may also have a urinary infection so Rocephin IV was ordered. I did review with Dr. Francisco who recommends transfer at this time for ERCP. Pt is in agreement with plan and [facility] Call placed and am awaiting call back. 05/14/18 00:57 Dr. Maryse Chiu accepted patient at [facility]. We will keep her NPO. 05/14/18 03:55 Pt has no new concerns or complaints and is resting comfortably. Vitals are acceptable. Pt stable for transport. - Vital Signs Vital signs: Temp Pulse Resp BP Pulse Ox 97.9 F 94 12 124/67 97 05/14/18 04:11 05/14/18 04:11 05/14/18 04:11 05/14/18 04:11 05/14/18 04:11 - Laboratory Result Diagrams: 05/13/18 17:11 05/13/18 18:50 Laboratory results interpreted by me: 05/13/18 05/13/18 05/13/18 17:11 18:50 21:30 WBC 12.3 H RBC 3.63 L Hgb 9.8 L Hct 29.3 L MCH 26.9 L RDW 24.1 H Band Neutrophils % 2 L Abs Neuts (Manual) 9.6 H PT 20.8 H Sodium 134.1 L Carbon Dioxide 18 L BUN 51 H Creatinine 2.55 H Est GFR ( Amer) 23 L Est GFR (Non-Af Amer) 19 L Calcium 10.8 H Total Bilirubin 12.5 H Direct Bilirubin 11.1 H AST 2146 H ALT 148 H Total Protein 8.8 H Albumin 3.1 L Lipase 975.3 H Urine Protein Urine Blood Urine Bilirubin Urine Urobilinogen Ur Leukocyte Esterase 05/13/18 22:22 WBC RBC Hgb Hct MCH RDW Band Neutrophils % Abs Neuts (Manual) PT Sodium Carbon Dioxide BUN Creatinine Est GFR ( Amer) Est GFR (Non-Af Amer) Calcium Total Bilirubin Direct Bilirubin AST ALT Total Protein Albumin Lipase Urine Protein 30 H Urine Blood MODERATE H Urine Bilirubin MODERATE H Urine Urobilinogen 4.0 H Ur Leukocyte Esterase TRACE H Discharge - Discharge Clinical Impression: Elevated LFTs, Choledocholithiasis Abdominal pain Qualifiers: Abdominal location: generalized Qualified Code(s): R10.84 - Generalized abdominal pain Ascites Qualifiers: Ascites type: due to alcoholic cirrhosis Qualified Code(s): K70.31 - Alcoholic cirrhosis of liver with ascites Condition: Stable [facility]
[2018-05-13 19:53] LABS: ALANINE AMINOTRANSFERASE 148 U/L (9-52); ALBUMIN 3.1 g/dL (3.5-5.0); ALKALINE PHOSPHATASE 115 U/L (38-126); ANION GAP 14 (5-19); BILIRUBIN,DIRECT 11.1 mg/dL (0.0-0.4); BILIRUBIN,TOTAL 12.5 mg/dL (0.2-1.3); BLOOD UREA NITROGEN 51 mg/dL (7-20); CALCIUM 10.8 mg/dL (8.4-10.2); CARBON DIOXIDE 18 mmol/L (22-30); CHLORIDE 102 mmol/L (98-107); GLUCOSE 75 mg/dL (75-110); LIPASE 975.3 U/L (23-300); POTASSIUM 4.4 mmol/L (3.6-5.0); SODIUM 134.1 mmol/L (137-145); TOTAL PROTEIN 8.8 g/dL (6.3-8.2)
--- NOTE | 2018-05-13 20:12 | RADIOLOGY REPORT (SQ) ---
EXAM DESCRIPTION: CHEST SINGLE VIEW COMPLETED DATE/TIME: 05/13/2018 7:43 pm REASON FOR STUDY: cough COMPARISON: 05/03/2018 EXAM PARAMETERS: NUMBER OF VIEWS: One view. TECHNIQUE: Single frontal radiographic view of the chest acquired. RADIATION DOSE: NA LIMITATIONS: None. FINDINGS: LUNGS AND PLEURA: Multiple pulmonary nodules. No infiltrate or effusion. MEDIASTINUM AND HILAR STRUCTURES: No masses. Contour normal. HEART AND VASCULAR STRUCTURES: Heart normal in size. Normal vasculature. BONES: No acute findings. HARDWARE: None in the chest. OTHER: No other significant finding. IMPRESSION: Metastatic disease in the chest. TECHNICAL DOCUMENTATION: JOB ID: [id number] [employer]- All Rights Reserved Reading location - IP/workstation name: [email or web address]
--- NOTE | 2018-05-13 20:13 | RADIOLOGY REPORT (SQ) ---
EXAM DESCRIPTION: KUB/ABDOMEN (SINGLE VIEW) COMPLETED DATE/TIME: 05/13/2018 7:43 pm REASON FOR STUDY: abd pain, recent colonoscopy COMPARISON: None. NUMBER OF VIEWS: One view. TECHNIQUE: Supine radiographic image of the abdomen acquired. LIMITATIONS: Body habitus FINDINGS: BOWEL GAS PATTERN: Normal bowel gas pattern. No dilated loops. CALCIFICATIONS: No suspicious calcifications. SOFT TISSUES: No gross mass or suggestion of organomegaly. HARDWARE: None in the abdomen. BONES: No acute fracture. No worrisome bone lesions. OTHER: No other significant finding. IMPRESSION: NO RADIOGRAPHIC EVIDENCE FOR ACUTE ABDOMINAL DISEASE. TECHNICAL DOCUMENTATION: JOB ID: [id number] [employer]- All Rights Reserved Reading location - IP/workstation name: [email or web address]
[2018-05-13 20:50] LABS: ASPARTATE AMINO TRANSFERASE 2146 U/L (14-36)
[2018-05-13] MEDS ORDERED: NORMAL SALINE 1000 ML 1,000 ML IV ONE (21:28)
[2018-05-13 21:58] LABS: PROTHROMBIN TIME 20.8 SEC (11.4-15.4)
[2018-05-13 21:59] LABS: PARTIAL THROMBOPLASTIN TIME 35.7 SEC (23.5-35.8)
[2018-05-13] MEDS ORDERED: DEXTROSE 5%-LACTATED RINGERS 1,000 ML IV ONE (22:15)
[2018-05-13 22:47] LABS: APPEARANCE,URINE CLOUDY; BILIRUBIN,URINE MODERATE (NEGATIVE); COLOR,URINE AMBER; GLUCOSE, URINE NEGATIVE (NEGATIVE); KETONES,URINE NEGATIVE (NEGATIVE); LEUKOCYTE ESTERASE,URINE TRACE (NEGATIVE); NITRITE,URINE NEGATIVE (NEGATIVE); PROTEIN,URINE 30 mg/dL (NEGATIVE); URINE SPECIFIC GRAVITY 1.015
--- NOTE | 2018-05-13 23:23 | RADIOLOGY REPORT (SQ) ---
US ABDOMEN LIMITED HISTORY: Elevated liver enzymes. COMPARISON: None. TECHNIQUE: Grayscale and color Doppler imaging of the right upper quadrant was performed. FINDINGS: The liver measures 21.8 cm. Liver has a coarse heterogeneous appearance with irregular contour suggesting cirrhosis. Perihepatic ascites is present. Multiple shadowing gallstones are seen. Gallbladder wall measures 4 mm. Mild pericholecystic ascites. Common bile duct is not well-visualized. No intrahepatic biliary ductal dilatation. The pancreas is not visualized due to overlying bowel gas. Right kidney measures 9.8 cm in length, without hydronephrosis. Visualized portions of the IVC and aorta are patent. IMPRESSION: Enlarged and cirrhotic liver with abdominal ascites. Cholelithiasis with mild gallbladder wall thickening but without sonographic Randolph sign. Findings are ambiguous for acute cholecystitis.
[2018-05-13] MEDS ORDERED: CEFTRIAXONE INJ 1000 MG VIAL ONE (23:32)
[2018-05-13] MEDS ORDERED: CEFTRIAXONE 1 GM/D5W RTU 1 GM/50 ML RTUPB IV ONE (23:35)
[2018-05-14] MEDS ORDERED: DEXTROSE 5%-1/2 NORMAL SALINE 500 ML IV ONE (02:11)
[2018-05-14 04:11] VITALS: BP 124/67
== END 2018-05-14 04:11 | disposition short-term general hospital (02) ==
LOC: ER 15:17
DX: K70.31 Alcoholic cirrhosis of liver with ascites (principal); K80.80 Other cholelithiasis without obstruction; R79.89 Other specified abnormal findings of blood chemistry; R10.84 Generalized abdominal pain; R05 Cough; I10 Essential (primary) hypertension; E11.9 Type 2 diabetes mellitus without complications
CPT/HCPCS: 96376; 94640; 99284; 96361; 96375; 96365; 36415; 87086; 83690; 85025; 85610; 85730; 87088; 80053; 81001; 87186; 71045; 74018; 76705; J2270; J0696; J2405; A9270; 96374